=== PATIENT | female | born 1945 | race Caucasian/White ===

== ENCOUNTER 2019-12-25 21:10 | Inpatient (IN) ==
[2019-12-25] MEDS ORDERED: Albuterol 0.5% CONC NEB.SOL 5 mg/ml 20 ml BOT INH ONE (21:21)
[2019-12-25] MEDS ORDERED: fentaNYL 100 mcg/2 ml 50 MCG/ML VIAL IV ONE (21:25)
[2019-12-26] MEDS: Enoxaparin 40 MG/0.4 ML SYR SUBCUT SCH ×2 (05:01→05:32)
[2019-12-26] MEDS: methylPREDNISolone SOD 40 mg/ml 1 ml VIAL IV SCH (07:46)
[2019-12-26] MEDS: Albuterol 2.5mg/3 ml (0.083%) NEB.SOLN INH PRN (07:55)
[2019-12-26] MEDS: Fluticasone NASAL SPRAY 50MCG 16 gm SPRAY BTL BOTH NARES SCH (12:19)
[2019-12-26 18:19] LABS: ABS Lymphocytes 0.5 10^3/ul (1.0-4.8); ABS Monocytes 0.2 10^3/ul (0-0.8); ABS Neutrophils 6.5 10^3/ul (1.5-7.7); Hematocrit 32 % (35-47); Hemoglobin 10.2 g/dL (12.0-16.0); Lymphocyte % 6.5 %; Mean Corpuscular HGB Conc 32 g/dL (31-36); Mean Corpuscular Hemoglobin 22 pg (27-31); Mean Corpuscular Volume 69 fL (80-97); Mean Platelet Volume 6.8 fL (7.4-10.4); Platelet Count 356 10^3/uL (150-450); Red Blood Count 4.62 10^6 /uL (3.70-4.87); Red Cell Distribution Width 22 % (10-15); White Blood Count 7.1 10^3/uL (3.5-10.8)
[2019-12-26 18:32] LABS: EGFR African American 82.5 (>60); EGFR Non-African American 68.1 (>60)
[2019-12-26] MEDS: Heparin DRIP 25,000 UNITS BAG 25,000 UNITS/500 ML BAG IV SCH (19:45)
[2019-12-26] MEDS: Heparin 5000 UNITS/ML 1 mL VIAL IV SCH (19:49)
[2019-12-27 07:58] LABS: ABS Basophils 0.1 10^3/ul (0-0.2); ABS Eosinophils 0.1 10^3/ul (0-0.6); ABS Lymphocytes 1.7 10^3/ul (1.0-4.8); ABS Monocytes 0.6 10^3/ul (0-0.8); ABS Neutrophils 5.2 10^3/ul (1.5-7.7); Eosinophil % 1.1 %; Hematocrit 33 % (35-47); Hemoglobin 10.4 g/dL (12.0-16.0); Lymphocyte % 22.5 %; Mean Corpuscular HGB Conc 32 g/dL (31-36); Mean Corpuscular Hemoglobin 22 pg (27-31); Mean Corpuscular Volume 69 fL (80-97); Mean Platelet Volume 6.6 fL (7.4-10.4); Platelet Count 327 10^3/uL (150-450); Red Blood Count 4.73 10^6 /uL (3.70-4.87); Red Cell Distribution Width 21 % (10-15); White Blood Count 7.7 10^3/uL (3.5-10.8)
[2019-12-27] MEDS: Heparin DRIP 25,000 UNITS BAG 25,000 UNITS/500 ML BAG IV SCH ×2 (08:18→14:13)
[2019-12-27] MEDS: methylPREDNISolone SOD 40 mg/ml 1 ml VIAL IV SCH ×2 (09:03→20:27)
[2019-12-27] MEDS: Fluticasone NASAL SPRAY 50MCG 16 gm SPRAY BTL BOTH NARES SCH (09:05)
[2019-12-27] MEDS: Albuterol 2.5mg/3 ml (0.083%) NEB.SOLN INH PRN ×2 (10:16→14:51)
[2019-12-27] MEDS: Albuterol/Ipratropium NEB.SOL (2.5/0.5 MG) 3 ML NEB.SOLN INH SCH ×2 (19:07→23:06)
[2019-12-27] MEDS: Heparin 5000 UNITS/ML 1 mL VIAL IV SCH (22:24)
[2019-12-28] MEDS: Heparin DRIP 25,000 UNITS BAG 25,000 UNITS/500 ML BAG IV SCH (00:09)
[2019-12-28] MEDS: Albuterol/Ipratropium NEB.SOL (2.5/0.5 MG) 3 ML NEB.SOLN INH SCH ×6 (03:14→23:22)
[2019-12-28 04:59] LABS: ABS Lymphocytes 0.4 10^3/ul (1.0-4.8); ABS Monocytes 0.1 10^3/ul (0-0.8); ABS Neutrophils 3.4 10^3/ul (1.5-7.7); Eosinophil % 0.1 %; Hematocrit 33 % (35-47); Hemoglobin 10.2 g/dL (12.0-16.0); Lymphocyte % 10.9 %; Mean Corpuscular HGB Conc 31 g/dL (31-36); Mean Corpuscular Hemoglobin 22 pg (27-31); Mean Corpuscular Volume 70 fL (80-97); Mean Platelet Volume 6.9 fL (7.4-10.4); Platelet Count 276 10^3/uL (150-450); Red Blood Count 4.73 10^6 /uL (3.70-4.87); Red Cell Distribution Width 21 % (10-15)
[2019-12-28 05:25] LABS: Albumin 4.1 g/dL (3.2-5.2); Albumin/Globulin Ratio 1.5 (1-3); BUN/Creatinine Ratio 38.5 (8-20); Calcium 9.9 mg/dL (8.6-10.3); EGFR African American 87.4 (>60); EGFR Non-African American 72.2 (>60); Globulin 2.7 g/dL (2-4); Potassium 4.7 mmol/L (3.5-5.0); Total Bilirubin 0.3 mg/dL (0.2-1.0); Total Protein 6.8 g/dL (6.4-8.9)
[2019-12-28] MEDS: methylPREDNISolone SOD 40 mg/ml 1 ml VIAL IV SCH ×2 (09:14→20:13)
[2019-12-28] MEDS: Fluticasone NASAL SPRAY 50MCG 16 gm SPRAY BTL BOTH NARES SCH (09:14)
[2019-12-28] MEDS: Al Hydrox/Mg Hydrox/Simet LIQ 30 ML UDC PO PRN (16:17)
[2019-12-28 17:37] LABS: Ferritin 32.6 ng/mL (11-307)
[2019-12-28 17:42] LABS: Vitamin B12 557 pg/mL (180-914)
[2019-12-28 17:47] LABS: Iron < 20 ug/dL (50-212)
[2019-12-28 17:58] LABS: % Iron Saturation 5 % (15-55); Total Iron Binding Capacity 424 mcg/dL (250-450); Transferrin 303 mg/dL (203-362); Unsaturated Iron Binding < 409 ug/dL
[2019-12-29] MEDS: Albuterol/Ipratropium NEB.SOL (2.5/0.5 MG) 3 ML NEB.SOLN INH SCH ×6 (04:54→23:21)
[2019-12-29] MEDS: methylPREDNISolone SOD 40 mg/ml 1 ml VIAL IV SCH (08:08)
[2019-12-29] MEDS: Fluticasone NASAL SPRAY 50MCG 16 gm SPRAY BTL BOTH NARES SCH (08:14)
[2019-12-29 09:58] LABS: Hematocrit 32 % (35-47); Hemoglobin 10.4 g/dL (12.0-16.0); Mean Corpuscular HGB Conc 32 g/dL (31-36); Mean Corpuscular Hemoglobin 22 pg (27-31); Mean Corpuscular Volume 69 fL (80-97); Mean Platelet Volume 7.1 fL (7.4-10.4); Platelet Count 339 10^3/uL (150-450); Red Cell Distribution Width 21 % (10-15); White Blood Count 6.6 10^3/uL (3.5-10.8)
[2019-12-29 10:10] LABS: BUN/Creatinine Ratio 37.5 (8-20); Calcium 10.3 mg/dL (8.6-10.3); EGFR African American 95.8 (>60); EGFR Non-African American 79.2 (>60); Potassium 4.2 mmol/L (3.5-5.0)
[2019-12-29] MEDS: Al Hydrox/Mg Hydrox/Simet LIQ 30 ML UDC PO PRN ×2 (12:24→19:45)
[2019-12-29] MEDS: Senna TAB 8.6 mg TAB PO PRN ×2 (15:53→19:45)
[2019-12-30] MEDS: Albuterol/Ipratropium NEB.SOL (2.5/0.5 MG) 3 ML NEB.SOLN INH SCH ×5 (03:35→19:19)
[2019-12-30 06:28] LABS: Hematocrit 32 % (35-47); Hemoglobin 10.3 g/dL (12.0-16.0); Mean Corpuscular HGB Conc 33 g/dL (31-36); Mean Corpuscular Hemoglobin 22 pg (27-31); Mean Corpuscular Volume 69 fL (80-97); Mean Platelet Volume 6.7 fL (7.4-10.4); Platelet Count 280 10^3/uL (150-450); Red Blood Count 4.58 10^6 /uL (3.70-4.87); Red Cell Distribution Width 21 % (10-15); White Blood Count 7.7 10^3/uL (3.5-10.8)
[2019-12-30 06:35] LABS: BUN/Creatinine Ratio 31.6 (8-20); Calcium 9.8 mg/dL (8.6-10.3); EGFR African American 86.1 (>60); EGFR Non-African American 71.1 (>60); Potassium 4.5 mmol/L (3.5-5.0)
[2019-12-30] MEDS: Senna TAB 8.6 mg TAB PO PRN (08:31)
[2019-12-30] MEDS: Fluticasone NASAL SPRAY 50MCG 16 gm SPRAY BTL BOTH NARES SCH (08:32)
[2019-12-30] MEDS: Al Hydrox/Mg Hydrox/Simet LIQ 30 ML UDC PO PRN (17:32)
[2019-12-31] MEDS: Albuterol/Ipratropium NEB.SOL (2.5/0.5 MG) 3 ML NEB.SOLN INH SCH ×5 (00:10→14:49)
[2019-12-31 07:13] LABS: Hematocrit 32 % (35-47); Hemoglobin 10.2 g/dL (12.0-16.0); Mean Corpuscular HGB Conc 32 g/dL (31-36); Mean Corpuscular Hemoglobin 22 pg (27-31); Mean Corpuscular Volume 69 fL (80-97); Mean Platelet Volume 6.9 fL (7.4-10.4); Platelet Count 294 10^3/uL (150-450); Red Blood Count 4.67 10^6 /uL (3.70-4.87); Red Cell Distribution Width 21 % (10-15); White Blood Count 7.8 10^3/uL (3.5-10.8)
[2019-12-31 07:24] LABS: BUN/Creatinine Ratio 33.3 (8-20); Calcium 9.6 mg/dL (8.6-10.3); EGFR African American 91.4 (>60); EGFR Non-African American 75.5 (>60); Potassium 4.4 mmol/L (3.5-5.0)
[2019-12-31] MEDS: Fluticasone NASAL SPRAY 50MCG 16 gm SPRAY BTL BOTH NARES SCH (08:48)
[2019-12-31 15:52] VITALS: BP 105/67
== END 2019-12-31 18:25 | disposition home health service (06) | DRG 176 ==
LOC: ED 21:10 → MED 21:56
PROVIDERS: ADMIT Student in an Organized Health Care Education/Training Program; ATTEND Internal Medicine

== ENCOUNTER 2021-02-11 12:27 | Inpatient (IN) ==
[2021-02-11] MEDS ORDERED: Heparin - STEMI 5,000 UNITS/ML 1 ml VIAL IV ONE (12:36)
[2021-02-11 12:44] LABS: ABS Basophils 0.1 10^3/ul (0-0.2); ABS Eosinophils 0.2 10^3/ul (0-0.6); ABS Lymphocytes 1.2 10^3/ul (1.0-4.8); ABS Monocytes 0.8 10^3/ul (0-0.8); ABS Neutrophils 5.6 10^3/ul (1.5-7.7); Eosinophil % 3.2 %; Hematocrit 33 % (35-47); Hemoglobin 10.6 g/dL (12.0-16.0); Lymphocyte % 14.7 %; Mean Corpuscular HGB Conc 32 g/dL (31-36); Mean Corpuscular Hemoglobin 26 pg (27-31); Mean Corpuscular Volume 79 fL (80-97); Platelet Count 193 10^3/uL (150-450); Red Blood Count 4.15 10^6 /uL (3.70-4.87); Red Cell Distribution Width 14 % (10-15); White Blood Count 7.9 10^3/uL (3.5-10.8)
[2021-02-11 13:01] LABS: Albumin 3.6 g/dL (3.2-5.2); Albumin/Globulin Ratio 1.8 (1-3); Calcium 9.2 mg/dL (8.6-10.3); EGFR African American 105.6 (>60); EGFR Non-African American 87.3 (>60); Total Bilirubin 0.3 mg/dL (0.2-1.0); Total Protein 5.6 g/dL (6.4-8.9)
[2021-02-11 13:04] LABS: Potassium 4.6 mmol/L (3.5-5.0)
[2021-02-11 13:15] LABS: Activated Partial Thrombo Time 34.2 seconds (26.0-38.0); INR 1.44 (0.86-1.15)
[2021-02-11 13:19] LABS: Rapid COVID-19 Molecular Undetected (Undetected)
[2021-02-11] MEDS: Morphine 4 MG/ML VIAL (1 ml) IV ONE ×2 (13:22→14:21)
[2021-02-11] MEDS ORDERED: Lactated Ringers 1000 ml BAG 1,000 ML IV ONE (13:25)
[2021-02-11] MEDS ORDERED: Morphine 2 MG/ML SYRINGE IV ONE (15:36)
[2021-02-11] MEDS ORDERED: Albuterol 2.5mg/3 ml (0.083%) NEB.SOLN INH PRN (15:43)
[2021-02-11] MEDS: Morphine 2 MG/ML SYRINGE IV PRN ×3 (17:46→23:31)
[2021-02-11] MEDS: Mometasone/Formoter 200/5 MDI INH SCH (20:57)
[2021-02-11] MEDS ORDERED: Fluticasone-Salmeterol 500-50 DISKUS INH SCH (21:00)
[2021-02-11] MEDS ORDERED: FLUTICASONE PROPIONATE 100 MCG INH SCH (21:00)
[2021-02-11 21:10] LABS: Rapid COVID-19 Molecular Undetected (Undetected)
[2021-02-12] MEDS: Morphine 2 MG/ML SYRINGE IV PRN ×6 (01:34→21:36)
[2021-02-12 06:39] LABS: ABS Lymphocytes 0.7 10^3/ul (1.0-4.8); ABS Monocytes 0.3 10^3/ul (0-0.8); ABS Neutrophils 3.2 10^3/ul (1.5-7.7); Eosinophil % 0.7 %; Hematocrit 34 % (35-47); Hemoglobin 11.1 g/dL (12.0-16.0); Lymphocyte % 15.5 %; Mean Corpuscular HGB Conc 33 g/dL (31-36); Mean Corpuscular Hemoglobin 26 pg (27-31); Mean Corpuscular Volume 79 fL (80-97); Mean Platelet Volume 7.1 fL (7.4-10.4); Platelet Count 182 10^3/uL (150-450); Red Blood Count 4.26 10^6 /uL (3.70-4.87); Red Cell Distribution Width 14 % (10-15); White Blood Count 4.3 10^3/uL (3.5-10.8)
[2021-02-12 06:52] LABS: Calcium 9.8 mg/dL (8.6-10.3); EGFR African American 113.5 (>60); EGFR Non-African American 93.8 (>60); Potassium 4.9 mmol/L (3.5-5.0)
[2021-02-12] MEDS: Mometasone/Formoter 200/5 MDI INH SCH ×3 (08:09→19:34)
[2021-02-12] MEDS: CMCS: Roflumilast 500 mcg TAB (NF) PO SCH (08:31)
[2021-02-12] MEDS: CMCS: Simvastatin 10 mg TAB (NF) PO SCH (08:31)
[2021-02-12] MEDS: Albuterol HFA INHALER 8 gm MDI INH PRN ×3 (09:15→19:34)
[2021-02-12] MEDS: Al Hydrox/Mg Hydrox/Simet LIQ 30 ML UDC PO PRN (12:05)
[2021-02-12] MEDS: Mometasone 220 MCG MDI INH SCH (19:36)
[2021-02-13] MEDS ORDERED: Iodixanol (CONTRAST) 320 MG/ML 100 ML SDV IV ONE (02:20)
[2021-02-13] MEDS ORDERED: diPHENhydraMINE IV 50 MG/ML 1 ml VIAL (BENADRYL) IV ONE (03:30)
[2021-02-13] MEDS: Morphine 2 MG/ML SYRINGE IV PRN ×3 (03:37→19:52)
[2021-02-13 06:58] LABS: ABS Lymphocytes 0.4 10^3/ul (1.0-4.8); Eosinophil % 0.1 %; Hematocrit 34 % (35-47); Hemoglobin 11.1 g/dL (12.0-16.0); Lymphocyte % 10.6 %; Mean Corpuscular HGB Conc 33 g/dL (31-36); Mean Corpuscular Hemoglobin 26 pg (27-31); Mean Corpuscular Volume 79 fL (80-97); Mean Platelet Volume 7.6 fL (7.4-10.4); Platelet Count 187 10^3/uL (150-450); Red Blood Count 4.26 10^6 /uL (3.70-4.87); Red Cell Distribution Width 14 % (10-15); White Blood Count 3.4 10^3/uL (3.5-10.8)
[2021-02-13 07:11] LABS: Calcium 9.5 mg/dL (8.6-10.3); Magnesium 1.9 mg/dL (1.9-2.7)
[2021-02-13 07:13] LABS: Potassium 5.1 mmol/L (3.5-5.0)
[2021-02-13] MEDS: Mometasone/Formoter 200/5 MDI INH SCH ×2 (07:17→19:23)
[2021-02-13] MEDS: CMCS: Roflumilast 500 mcg TAB (NF) PO SCH (07:35)
[2021-02-13] MEDS: CMCS: Simvastatin 10 mg TAB (NF) PO SCH (07:37)
[2021-02-13] MEDS ORDERED: Levalbuterol 0.63MG/3ML NEB UNIT OF USE INH ONE (11:54)
[2021-02-13] MEDS: Levalbuterol HFA INHALER MDI INH SCH ×4 (13:16→23:00)
[2021-02-13] MEDS: Mometasone 220 MCG MDI INH SCH (19:24)
[2021-02-14] MEDS: Levalbuterol HFA INHALER MDI INH SCH ×6 (03:26→23:21)
[2021-02-14 06:27] LABS: ABS Eosinophils 0.1 10^3/ul (0-0.6); ABS Lymphocytes 1.4 10^3/ul (1.0-4.8); ABS Monocytes 0.5 10^3/ul (0-0.8); ABS Neutrophils 3.3 10^3/ul (1.5-7.7); Eosinophil % 1.5 %; Hematocrit 34 % (35-47); Hemoglobin 11.2 g/dL (12.0-16.0); Lymphocyte % 26.6 %; Mean Corpuscular HGB Conc 33 g/dL (31-36); Mean Corpuscular Hemoglobin 26 pg (27-31); Mean Corpuscular Volume 79 fL (80-97); Mean Platelet Volume 7.5 fL (7.4-10.4); Nucleated Red Blood Cells % 0.1; Platelet Count 179 10^3/uL (150-450); Red Blood Count 4.28 10^6 /uL (3.70-4.87); Red Cell Distribution Width 14 % (10-15); White Blood Count 5.4 10^3/uL (3.5-10.8)
[2021-02-14 06:34] LABS: Calcium 9.7 mg/dL (8.6-10.3); Magnesium 1.9 mg/dL (1.9-2.7); Potassium 4.2 mmol/L (3.5-5.0)
[2021-02-14] MEDS: Mometasone/Formoter 200/5 MDI INH SCH ×2 (08:01→19:26)
[2021-02-14] MEDS: CMCS: Simvastatin 10 mg TAB (NF) PO SCH (08:28)
[2021-02-14] MEDS: CMCS: Roflumilast 500 mcg TAB (NF) PO SCH (08:36)
[2021-02-14] MEDS: Morphine 2 MG/ML SYRINGE IV PRN ×2 (14:08→18:44)
[2021-02-14] MEDS: Mometasone 220 MCG MDI INH SCH (18:41)
[2021-02-15] MEDS: Levalbuterol HFA INHALER MDI INH SCH ×7 (03:30→23:22)
[2021-02-15] MEDS: Mometasone/Formoter 200/5 MDI INH SCH ×2 (07:01→19:25)
[2021-02-15] MEDS: Morphine 2 MG/ML SYRINGE IV PRN ×5 (07:38→20:00)
[2021-02-15] MEDS: Ondansetron ODT 4 mg TAB 4 MG TAB SL PRN ×2 (09:57→16:20)
[2021-02-15] MEDS: CMCS: Simvastatin 10 mg TAB (NF) PO SCH (10:43)
[2021-02-15] MEDS: CMCS: Roflumilast 500 mcg TAB (NF) PO SCH (10:44)
[2021-02-15] MEDS: Mometasone 220 MCG MDI INH SCH (19:24)
[2021-02-16] MEDS: Levalbuterol HFA INHALER MDI INH SCH ×5 (02:49→20:06)
[2021-02-16] MEDS: Morphine 2 MG/ML SYRINGE IV PRN ×3 (07:22→14:01)
[2021-02-16] MEDS: CMCS: Roflumilast 500 mcg TAB (NF) PO SCH (08:08)
[2021-02-16] MEDS: CMCS: Simvastatin 10 mg TAB (NF) PO SCH (08:08)
[2021-02-16] MEDS: Mometasone/Formoter 200/5 MDI INH SCH ×2 (08:34→20:05)
[2021-02-16 10:37] LABS: Rapid COVID-19 Molecular Undetected (Undetected)
[2021-02-16] MEDS: Ondansetron ODT 4 mg TAB 4 MG TAB SL PRN (16:17)
[2021-02-16] MEDS: Al Hydrox/Mg Hydrox/Simet LIQ 30 ML UDC PO PRN (19:46)
[2021-02-16] MEDS: Mometasone 220 MCG MDI INH SCH (20:08)
[2021-02-17] MEDS: Levalbuterol HFA INHALER MDI INH SCH ×7 (01:01→22:58)
[2021-02-17] MEDS: Mometasone/Formoter 200/5 MDI INH SCH ×2 (07:16→19:25)
[2021-02-17] MEDS: CMCS: Simvastatin 10 mg TAB (NF) PO SCH (09:16)
[2021-02-17] MEDS: CMCS: Roflumilast 500 mcg TAB (NF) PO SCH (09:17)
[2021-02-17] MEDS: Mometasone 220 MCG MDI INH SCH (19:27)
[2021-02-18] MEDS: Levalbuterol HFA INHALER MDI INH SCH ×6 (03:20→23:06)
[2021-02-18] MEDS: Mometasone/Formoter 200/5 MDI INH SCH ×2 (07:06→19:32)
[2021-02-18] MEDS: CMCS: Roflumilast 500 mcg TAB (NF) PO SCH (07:51)
[2021-02-18] MEDS: CMCS: Simvastatin 10 mg TAB (NF) PO SCH (07:52)
[2021-02-18] MEDS: Ondansetron ODT 4 mg TAB 4 MG TAB SL PRN (08:53)
[2021-02-18] MEDS: Mometasone 220 MCG MDI INH SCH (18:32)
[2021-02-18] MEDS: Fluticasone NASAL SPRAY 50MCG 16 gm SPRAY BTL BOTH NARES SCH (23:23)
[2021-02-19] MEDS: Levalbuterol HFA INHALER MDI INH SCH ×2 (03:04→07:56)
[2021-02-19] MEDS: Mometasone/Formoter 200/5 MDI INH SCH (07:56)
[2021-02-19 08:08] VITALS: BP 116/67
[2021-02-19] MEDS: Fluticasone NASAL SPRAY 50MCG 16 gm SPRAY BTL BOTH NARES SCH (08:47)
[2021-02-19] MEDS: CMCS: Roflumilast 500 mcg TAB (NF) PO SCH (08:51)
[2021-02-19] MEDS ORDERED: CMCS: Simvastatin 10 mg TAB (NF) PO SCH (09:00)
[2021-02-19] MEDS: Ondansetron ODT 4 mg TAB 4 MG TAB SL PRN (09:53)
== END 2021-02-19 10:50 | DRG 192 ==
LOC: MEDTELE 12:27 → EDHOLD 12:27 → ED 12:27 → SUATTDRO 15:39 → MEDTELE 20:40 → SUATTDRO 02-12 18:19
PROVIDERS: ADMIT Internal Medicine; ATTEND Internal Medicine